=== PATIENT | female | born 1960 | race Caucasian/White ===

== ENCOUNTER 2017-01-07 16:17 | Emergency (ER) | payer SELFPAY ==
[~2017-01-07] VITALS: Ht 162.6 cm; Wt 91.3 kg
[~2017-01-07 16:17] MED LIST: CETI10TA18 PO; CITA10TA4 PO; HYDR25TA11 PO; LISI-170 PO; TRAZ50TA18 PO
[2017-01-07 16:24] VITALS: BP 164/103
[2017-01-07] MEDS ORDERED: KETOROLAC 30 MG/1 ML IM ONE (17:30)
[2017-01-07] MEDS ORDERED: KETOROLAC 30 MG/1 ML ONE (17:35)
== END 2017-01-07 19:14 | disposition home or self-care (01) ==
LOC: ED 19:07
DX: S83.92XA Sprain of unspecified site of left knee, initial encounter (principal); M25.462 Effusion, left knee; W22.8XXA Striking against or struck by other objects, initial encounter; Y93.89 Activity, other specified; Y99.8 Other external cause status; Y92.89 Other specified places as the place of occurrence of the external cause
CPT/HCPCS: 73564; 93971; 96372; 99284; J1885

== ENCOUNTER 2017-03-17 07:47 | Emergency (ER) | payer MEDICAID ==
[~2017-03-17] VITALS: Ht 165.1 cm; Wt 87.2 kg
[2017-03-17 07:48] VITALS: BP 123/74
== END 2017-03-17 08:55 | disposition home or self-care (01) ==
LOC: ED 08:44
DX: M25.462 Effusion, left knee (principal); I10 Essential (primary) hypertension; X50.1XXA Overexertion from prolonged static or awkward postures, initial encounter; Y93.89 Activity, other specified; Y92.89 Other specified places as the place of occurrence of the external cause; Y99.8 Other external cause status
CPT/HCPCS: 29505

== ENCOUNTER 2017-05-21 16:08 | Emergency (ER) | payer MEDICAID ==
[~2017-05-21] VITALS: Ht 165.1 cm; Wt 84.4 kg
[2017-05-21 18:19] VITALS: BP 117/71
== END 2017-05-21 18:22 | disposition home or self-care (01) ==
LOC: ED 18:16
DX: J20.8 Acute bronchitis due to other specified organisms (principal); I10 Essential (primary) hypertension
CPT/HCPCS: 71020; 99284

== ENCOUNTER 2018-06-15 11:07 | Emergency (ER) | payer MEDICAID, OTHER ==
[~2018-06-15] VITALS: Ht 160 cm; Wt 72.8 kg
[~2018-06-15 11:07] MED LIST changes: +TRAZ-136 PO; -TRAZ50TA18 PO
[2018-06-15 11:09] VITALS: BP 154/101
== END 2018-06-15 11:42 | disposition home or self-care (01) ==
LOC: ED 11:10
DX: H65.02 Acute serous otitis media, left ear (principal); I10 Essential (primary) hypertension; Z87.891 Personal history of nicotine dependence
CPT/HCPCS: 99283

== ENCOUNTER 2018-09-29 03:50 | Emergency (ER) | payer OTHER ==
[~2018-09-29] VITALS: Ht 165.1 cm; Wt 71.9 kg
[~2018-09-29 03:50] MED LIST changes: -TRAZ-136 PO; +TRAZ50TA66 PO
[2018-09-29 03:54] VITALS: BP 146/102
--- NOTE | 2018-09-29 04:11 | NUR ---
TO BEDSIDE FOR PT DINO COMPLETE. PT REPORTS HAVING RUNNY NOSE STARTING X3 DAYS AGO. PT REPORTS YESTERDAY SHE GOT COUGH, N/V, CONGESTION AND A HEADACHE TONIGHT ON TOP OF THE RUNNY NOSE. PT DENIES FEVER AT HOME. PT REPORTS BEING ABLE TO KEEP FLUIDS DOWN WELL. PT A/OX4, BREATHNIG E/U. PT RESTING IN BED, CONGESTED COUGH NOTED IN ROOM OCCATIONALLY.
[2018-09-29] MEDS ORDERED: KETOROLAC 30 MG/1 ML ONE (04:15)
[2018-09-29] MEDS ORDERED: ONDANSETRON ODT 8 MG ONE ×2 (04:15→04:18)
[2018-09-29] MEDS ORDERED: ONDANSETRON ODT 8 MG PO ONE (04:30)
[2018-09-29] MEDS ORDERED: KETOROLAC 30 MG/1 ML IM ONE (04:30)
== END 2018-09-29 04:55 | disposition home or self-care (01) ==
LOC: ED 04:50
DX: B34.9 Viral infection, unspecified (principal); R51 Headache; I10 Essential (primary) hypertension; Z88.0 Allergy status to penicillin
CPT/HCPCS: 96372; 99283; J1885; Q0162

== ENCOUNTER 2019-01-22 10:37 | Emergency (ER) | payer SELFPAY ==
[~2019-01-22] VITALS: Ht 154.9 cm; Wt 74.7 kg
[2019-01-22 11:12] LABS: BASOPHILS # (AUTO) 0.04 x10^3/uL (0-0.1); BASOPHILS % (AUTO) 1 % (0-1); EOSINOPHILS # (AUTO) 0.08 x10^3/uL (0-0.4); EOSINOPHILS % (AUTO) 1 % (1-7); LYMPHOCYTES # (AUTO) 2.03 x10^3/uL (1-3.4); LYMPHOCYTES % (AUTO) 25 % (22-44); MD NO; MEAN CORPUSCULAR HEMOGLOBIN 30.2 pg (27.0-34.8); MEAN CORPUSCULAR HGB CONC 33.7 g/dL (32.4-35.8); MEAN CORPUSCULAR VOLUME 89.7 fL (80-100); MONOCYTES # (AUTO) 0.49 x10^3/uL (0.2-0.8); MONOCYTES % (AUTO) 6 % (2-9); NEUTROPHILS # (AUTO) 5.56 x10^3/uL (1.8-6.8); NEUTROPHILS % (AUTO) 68 % (42-75); PLATELET COUNT 302 x10^3/uL (130-400); RED BLOOD COUNT 4.75 x10^6/uL (3.82-5.3); RED CELL DISTRIBUTION WIDTH 14.9 % (9.6-15.2)
[2019-01-22 11:23] LABS: ALBUMIN 4.2 g/dL (3.4-5.0); ANION GAP 5 mmol/L (5-15); CALCIUM 9.3 mg/dL (8.5-10.1); CHLORIDE 105 mmol/L (98-107)
[2019-01-22 11:26] LABS: ALANINE AMINOTRANSFERASE 20 U/L (12-78); ALKALINE PHOSPHATASE 70 U/L (45-117); BILIRUBIN,TOTAL 0.7 mg/dL (0.2-1.0); CREATININE 1.08 mg/dL (0.55-1.02)
[2019-01-22 14:02] VITALS: BP 144/96
--- NOTE | 2019-01-22 15:07 | NUR ---
PT STATES SHE HAS BEEN WAITING A LONG TIME. STATES ALL SYMPTOMS HAVE RESOLVED. REQUESTS TO KNOW HOW MUCH LONGER UNTIL PROVIDER IS IN. PT INFORMED THAT WAIT TIMES ARE DIFFICULT TO ESTIMATE. PT REQUESTS TO LEAVE. ENCOURAGED TO STAY, PT DECLINES. AMA FORM SIGNED.
--- NOTE | 2019-01-22 15:09 | NUR ---
PT AMBULATING WELL. THIS RN VERIFIED PT'S SYMPTOMS OF ABD PAIN, DIZZINESS, TINGLING HAVE RESOLVED.
[2019-01-22 15:16] LABS: MICROSCOPIC INDICATED
[2019-01-22 15:17] LABS: CULTURE INDICATED? YES
== END 2019-01-22 15:05 | disposition left against medical advice (07) ==
LOC: ED 15:05
DX: R10.13 Epigastric pain (principal); R11.2 Nausea with vomiting, unspecified
CPT/HCPCS: 36415; 80053; 81001; 83690; 85025; 87086; 99283